=== PATIENT | male | born 1970 | race Caucasian/White ===

== ENCOUNTER → 2017-12-08 | Outpatient (CLI) | payer OTHER ==
[~2017-12-08] MED LIST: GADAVIST IV PRN
--- NOTE | 2017-12-08 11:46 | DIAGNOSTIC IMAGING REPORT ---
L UPPER EXT JOINT WITH CLINICAL HISTORY: LT SHOULDER PAIN pain TECHNIQUE: Multi axial acquisition post contrast shoulder arthrography COMPARISON STUDY: None FINDINGS: Signal characteristics of the osseous structures are unremarkable. There is inferior angulation of the acromion creating moderate impingement upon the supraspinatus musculotendinous junction. There are findings of mild supraspinatus tendinopathy. No evidence for rotator cuff tear. Infraspinatus and subscapularis tendons are unremarkable. Biceps tendon is intact within the bicipital groove. Glenoid labrum is considered unremarkable. IMPRESSION: 1. Moderate impingement of the supraspinatus musculotendinous junction due to hypertrophic change and inferior angulation of the acromioclavicular joint. 2. Mild/moderate supraspinatus tendinopathy.. 3. Study is otherwise unremarkable. The above report was generated using voice recognition software. It may contain grammatical, syntax or spelling errors. Electronically signed by: Ricky Wade M.D. 12/08/2017 11:45 AM Dictated Date/Time: 12/08/2017 11:38 AM
--- NOTE | 2017-12-08 12:13 | DIAGNOSTIC IMAGING REPORT ---
FLUOROSCOPICALLY GUIDED LEFT SHOULDER ARTHROGRAM PRIOR TO MRI CLINICAL HISTORY: Left shoulder pain. COMPARISON STUDY: None. FLUOROSCOPY TIME: 12 seconds. FINDINGS: 1 fluoroscopic image was obtained. The procedure, risks and benefits were discussed with the patient and informed written consent was obtained. The procedure was performed by Dr. Mari following a timeout. Skin overlying the left glenohumeral joint was prepped and draped in sterile fashion and local anesthesia was achieved with 1% lidocaine. Under intermittent fluoroscopic guidance, a 2 and a half-inch, 22-gauge needle was directed into left glenohumeral joint. Positioning within the joint space was confirmed with injection of a small amount of contrast. At this time, 12 cc of a mixture of 0.05 cc of gadolinium, 10 cc of normal saline and 10 cc of Optiray 300 was injected into the joint. The needle was removed. The patient tolerated the procedure well and no immediate complications were evident. The patient was transported to MRI. IMPRESSION: Successful fluoroscopically guided left shoulder arthrogram prior to MRI. Electronically signed by: Epi Mari M.D. 12/08/2017 12:12 PM Dictated Date/Time: 12/08/2017 12:11 PM
== END | disposition home or self-care (01) ==
LOC: C.MRIBC 09:45
PROVIDERS: ATTEND Family Medicine
DX: M25.512 Pain in left shoulder (principal)